=== PATIENT | male | born 1990 | race Caucasian/White ===

== ENCOUNTER 2020-07-17 16:18 | Emergency (ER) | payer MEDICAID ==
[~2020-07-17] VITALS: Ht 170.2 cm; Wt 82.0 kg
[2020-07-17 17:58] LABS: BASOPHILS % 0.6 % (0.0-2.0); HEMATOCRIT. 46.6 % (42.0-52.0); HEMOGLOBIN. 16.3 g/dL (14.0-18.0); LYMPHOCYTES % 35.7 % (20.0-50.0); MEAN CORPUSCULAR HEMOGLOBIN 28.9 pg (28.0-32.0); MEAN CORPUSCULAR VOLUME 82.4 fL (80.0-94.0); MONOCYTES % 6.5 % (2.0-8.0); NEUTROPHILS % 57.2 % (40.0-76.0); PLATELET 357 x1000/uL (130-400); RED BLOOD CELL COUNT 5.65 mill/uL (4.7-6.1); RED CELL DISTRIBUTION WIDTH 13.9 % (11.6-14.6)
[2020-07-17 18:02] LABS: CHLORIDE 97 mEq/L (98-107)
[2020-07-17 18:27] LABS: CLARITY URINE CLEAR (CLEAR); COLOR URINE YELLOW (YELLOW); KETONES URINE NEGATIVE (NEGATIVE); LEUKOCYTE ESTERASE URINE NEGATIVE (NEGATIVE); NITRITE URINE NEGATIVE (NEGATIVE); OCCULT BLOOD URINE NEGATIVE (NEGATIVE); PH URINE 6.5 (4.5-8.0); PROTEIN URINE TRACE (NEGATIVE)
[2020-07-17 18:40] LABS: *AMPHETAMINES SCREEN URINE NEGATIVE (NEGATIVE); *BARBITURATES SCREEN URINE NEGATIVE (NEGATIVE); *BENZODIAZEPINES SCREEN URINE NEGATIVE (NEGATIVE); *COCAINE SCREEN URINE NEGATIVE (NEGATIVE)
[2020-07-17] MEDS ORDERED: SODIUM CHLORIDE 0.9% 1,000 ML IV ONE (18:40)
[2020-07-17 18:41] LABS: CANNABINOID URINE SCREEN NEGATIVE (NEGATIVE); METHADONE URINE SCREEN NEGATIVE (NEGATIVE); OPIATES URINE SCREEN NEGATIVE (NEGATIVE); PHENCYCLIDINE URINE SCREEN NEGATIVE (NEGATIVE)
[2020-07-17] MEDS ORDERED: ONDANSETRON HCL 4MG/2ML INJ IV ONE (18:45)
[2020-07-17 20:00] VITALS: BP 129/85
== END 2020-07-17 20:25 | disposition home or self-care (01) ==
LOC: ER 16:18
DX: F10.10 Alcohol abuse, uncomplicated (principal); Y90.6 Blood alcohol level of 120-199 mg/100 ml; F19.10 Other psychoactive substance abuse, uncomplicated; F41.9 Anxiety disorder, unspecified
CPT/HCPCS: 36415; 71045; 76700; 80053; 80305; 80320; 81003; 83690; 85025; 93005; 96361; 96374; 99285; J2405; J7030; G0480

== ENCOUNTER 2020-10-25 05:04 | Emergency (ER) | payer MEDICAID, OTHER ==
[~2020-10-25] VITALS: Ht 162.6 cm; Wt 73.0 kg
[2020-10-25 05:09] VITALS: BP 152/90
[2020-10-25] MEDS ORDERED: LORAZEPAM 2MG/ML CPJ IM ONE (08:15)
[2020-10-25] MEDS ORDERED: CHLORDIAZEPOXIDE 25MG CAPSULE PO ONE (08:15)
== END 2020-10-25 10:15 | disposition home or self-care (01) ==
LOC: ER 05:04
DX: F10.239 Alcohol dependence with withdrawal, unspecified (principal); F41.9 Anxiety disorder, unspecified; Y90.9 Presence of alcohol in blood, level not specified
CPT/HCPCS: 93005; 99283

== ENCOUNTER 2020-11-22 18:05 | Emergency (ER) | payer OTHER ==
[~2020-11-22] VITALS: Ht 175.3 cm; Wt 91.0 kg
[2020-11-22 18:07] VITALS: BP 130/80
[2020-11-22] MEDS ORDERED: LORAZEPAM 1MG TABLET PO ONE (18:30)
== END 2020-11-22 20:01 | disposition home or self-care (01) ==
LOC: ER 18:05
DX: R55 Syncope and collapse (principal); U07.1 COVID-19; F41.9 Anxiety disorder, unspecified
CPT/HCPCS: 93005; 99283

== ENCOUNTER 2023-06-07 17:37 | Emergency (ER) | payer MEDICAID, OTHER ==
[~2023-06-07] VITALS: Ht 170.2 cm; Wt 102.0 kg
[2023-06-07 17:43] VITALS: O2SAT 100
[2023-06-07] MEDS ORDERED: LORAZEPAM 2MG/ML CPJ IV ONE (19:30)
[2023-06-07] MEDS ORDERED: FOLIC ACID 1 MG, THIAMINE HCL 100 MG, MVI, ADULT NO.1 10 ML in DEXTROSE 5% WATER 1,000 ML IV ONE ×4 (19:30)
[2023-06-07 20:55] LABS: EOSINOPHILS % 0.1 % (0.0-5.0); HEMOGLOBIN. 15.2 g/dL (14.0-18.0); LYMPHOCYTES % 47.1 % (20.0-50.0); MEAN CORPUSCULAR HEMOGLOBIN 28.8 pg (28.0-32.0); MEAN CORPUSCULAR VOLUME 83.1 fL (80.0-94.0); MEAN PLATELET VOLUME 7.2 fl (7.4-10.4); MONOCYTES % 7.3 % (2.0-8.0); NEUTROPHILS % 44.5 % (40.0-76.0); PLATELET 289 x1000/uL (130-400); RED BLOOD CELL COUNT 5.29 mill/uL (4.7-6.1); RED CELL DISTRIBUTION WIDTH 15.6 % (11.6-14.6)
[2023-06-07 20:58] LABS: CHLORIDE 98 mEq/L (98-107)
[2023-06-07 22:30] VITALS: BP 149/104; PULSE 77; RESP 16; TEMP 98.1
[2023-06-07] MEDS ORDERED: L10 MT (22:30)
[2023-06-07] MEDS ORDERED: IBUP-1523 MT (22:30)
== END 2023-06-07 22:58 | disposition home or self-care (01) ==
LOC: ER 17:45
DX: F10.239 Alcohol dependence with withdrawal, unspecified (principal); F41.9 Anxiety disorder, unspecified; M62.89 Other specified disorders of muscle; R07.89 Other chest pain; Y90.9 Presence of alcohol in blood, level not specified
CPT/HCPCS: 80053; 83880; 85025; 36415; 71045; 93005; 96365; 96366; 96375; 99285; J3490 ×2; J2060; J3411; J7070; Z7610